=== PATIENT | female | born 1985 | race African-American/Black ===

== ENCOUNTER 2024-04-17 12:47 | Emergency (ER) | payer MEDICAID ==
[~2024-04-17] VITALS: Ht 165.1 cm; Wt 75.0 kg
[2024-04-17 12:54] VITALS: O2SAT 100
[2024-04-17] MEDS ORDERED: DEXAMETHASONE 1MG TABLET PO ONE (14:15)
[2024-04-17] MEDS ORDERED: IBUPROFEN 800MG TABLET PO ONE (14:15)
[2024-04-17] MEDS: DEXAMETHASONE 6MG TABLET PO NR (14:58)
[2024-04-17] MEDS: IBUPROFEN 800MG TABLET PO NR (14:58)
[2024-04-17] MEDS ORDERED: PENI500T MT (16:20)
[2024-04-17 16:31] VITALS: BP 135/85; PULSE 98; RESP 18; TEMP 99.6
== END 2024-04-17 16:34 | disposition home or self-care (01) ==
LOC: ER 12:47
DX: J02.0 Streptococcal pharyngitis (principal); F12.10 Cannabis abuse, uncomplicated
CPT/HCPCS: 87430; 99283; J8540

== ENCOUNTER 2024-11-19 09:23 | Emergency (ER) | payer MEDICAID ==
[~2024-11-19] VITALS: Ht 193 cm; Wt 85.0 kg
[~2024-11-19 09:23] MED LIST: PENI500T MT
[2024-11-19 09:26] VITALS: O2SAT 100
[2024-11-19 09:27] VITALS: BP 96/65; PULSE 57; RESP 18; TEMP 98.9; O2SAT 100
[2024-11-19 10:11] LABS: CLARITY URINE CLEAR (CLEAR); COLOR URINE YELLOW (YELLOW); GLUCOSE URINE NEGATIVE (NEGATIVE); KETONES URINE NEGATIVE (NEGATIVE); LEUKOCYTE ESTERASE URINE NEGATIVE (NEGATIVE); NITRITE URINE NEGATIVE (NEGATIVE); OCCULT BLOOD URINE NEGATIVE (NEGATIVE); PH URINE 5.5 (4.5-8.0); PROTEIN URINE NEGATIVE (NEGATIVE); SPECIFIC GRAVITY URINE 1.023 (1.005-1.030); UROBILINOGEN URINE 0.2 E.U./dL (0.2-1.0)
[2024-11-19] MEDS: ACETAMINOPHEN 325MG TABLET PO ONE (12:49)
[2024-11-19] MEDS: LIDOCAINE 5% PATCH TOP SCH (12:53)
== END 2024-11-19 15:24 | disposition home or self-care (01) ==
LOC: ER 09:23
DX: M54.9 Dorsalgia, unspecified (principal); M54.2 Cervicalgia; V89.2XXA Person injured in unspecified motor-vehicle accident, traffic, initial encounter; Y93.89 Activity, other specified; Y92.89 Other specified places as the place of occurrence of the external cause; Y99.8 Other external cause status
CPT/HCPCS: 81003; 81025; 99284

== ENCOUNTER 2025-07-08 09:37 | Emergency (ER) | payer MEDICAID ==
[~2025-07-08] VITALS: Ht 165.1 cm; Wt 58.0 kg
[2025-07-08 09:44] VITALS: TEMP 36.7; O2SAT 100
[2025-07-08] MEDS: LIDOCAINE 5% PATCH TOP STA (10:44)
[2025-07-08] MEDS: CYCLOBENZAPRINE 10MG TABLET PO ONE (10:44)
[2025-07-08] MEDS ORDERED: KETO10TA2 MT (12:05)
[2025-07-08] MEDS ORDERED: CYCL10TA21 MT (12:05)
[2025-07-08] MEDS ORDERED: LIDO700A30 TP (12:05)
[2025-07-08 12:35] VITALS: BP 101/65; PULSE 60; RESP 18; O2SAT 100
== END 2025-07-08 12:50 | disposition home or self-care (01) ==
LOC: ER 09:37
DX: M54.42 Lumbago with sciatica, left side (principal); F12.90 Cannabis use, unspecified, uncomplicated; Z79.899 Other long term (current) drug therapy
CPT/HCPCS: 72100; 81025; 99283